=== PATIENT | male | born 1985 | race Caucasian/White ===

== ENCOUNTER 2024-12-06 13:35 | Emergency (ER) | payer BC, OTHER ==
[2024-12-06] MEDS: Gadobenate Dimeglumine 529 MG/ML 20 ML SDV IVPUSH ONE (14:48)
[2024-12-06] MEDS: Sodium Chloride 0.9% 10 ML Syringe FLUSH PRN (14:48)
[2024-12-06 15:46] LABS: BASOPHILS ABSOLUTE AUTO 0.1 K/mm3 (0.0-0.2); BASOPHILS PERCENT AUTO 1.3 % (0.0-1.0); EOSINOPHILS ABSOLUTE AUTO 0.1 K/mm3 (0.0-0.4); EOSINOPHILS PERCENT AUTO 2.6 % (0.0-6.0); HEMATOCRIT 43.4 % (42.0-52.0); HEMOGLOBIN 15.2 gm/dl (14.0-18.0); IMMATURE GRAN ABSOLUTE AUTO 0.01 K/mm3 (0.00-0.05); IMMATURE GRAN PERCENT AUTO 0.2 % (0.0-0.4); LYMPHOCYTES ABSOLUTE AUTO 1.5 K/mm3 (1.0-4.8); LYMPHOCYTES PERCENT AUTO 27.1 % (24.0-44.0); MEAN CORPUSCULAR HEMOGLOBIN 30.7 pg (28.0-32.0); MEAN CORPUSCULAR VOLUME 87.7 fl (83.0-99.0); MEAN PLATELET VOLUME 8.8 fl (9.4-12.4); MONOCYTES ABSOLUTE AUTO 0.7 K/mm3 (0.0-0.8); MONOCYTES PERCENT AUTO 13.2 % (0.0-8.0); NEUTROPHILS ABSOLUTE AUTO 3.1 K/mm3 (1.8-7.7); NEUTROPHILS PERCENT AUTO 55.6 % (41.0-71.0); PLATELET COUNT,PLT 198 K/mm3 (150-400); RED BLOOD CELL COUNT 4.95 M/mm3 (4.52-5.90); WHITE BLOOD CELL COUNT,WBC 5.47 K/mm3 (3.9-11.3)
[2024-12-06 16:08] LABS: INR 1.15; PROTHROMBIN TIME 12.1 SECONDS (9.7-12.0)
[2024-12-06 16:22] LABS: A/G RATIO 0.8 (1-2); ALBUMIN 3.6 g/dl (3.4-5.0); ANION GAP 21.5 (5-15); BILIRUBIN TOTAL 1.5 mg/dL (0.2-1.0); C-REACTIVE PROTEIN 0.49 mg/dL (<0.30); CALCIUM 8.9 mg/dL (8.5-10.1); CREATININE 0.5 mg/dL (0.7-1.3); EST CRCL DRUG DOSING (CG) 226.05 mL/min; ETHANOL BLOOD MEDICAL 0.27 gm% (0.00); POTASSIUM,K 3.5 mEq/L (3.5-5.1); PROTEIN TOTAL,TP 8.1 g/dl (6.4-8.2); TSH 3.389 uIU/mL (0.358-3.74)
[2024-12-06 16:58] LABS: APPEARANCE,URINE CLEAR (Clear); BILIRUBIN,URINE NEGATIVE (Negative); COLOR,URINE YELLOW (Yellow); GLUCOSE,URINE NEGATIVE (Negative); KETONES,URINE 1+ (Negative); LEUKOCYTE ESTERASE,URINE TRACE (Negative); NITRITE,URINE NEGATIVE (Negative); OCCULT BLOOD,URINE TRACE-LYSED (Negative); PROTEIN,URINE NEGATIVE (Negative)
[2024-12-06] MEDS: Thiamine 200 MG/2 ML MDV IVPUSH ONE (17:32)
[2024-12-06] MEDS: Sodium Chloride 0.9% 2,000 ML IV SCH (17:32)
[2024-12-06] MEDS: Multivitamins with Minerals/Folic Acid/Lutein/Zeaxanth Tab PO STA (17:33)
[2024-12-06] MEDS: Folic Acid 1 MG Tab PO ONE (17:33)
[2024-12-06] MEDS: Magnesium Sulf/Wat 4 GM/50 mL 4 GM in Premix Bag 1 BAG IV ONE (17:33)
[2024-12-06 17:47] LABS: BACTERIA,URINE FEW /hpf (FEW); MUCUS,URINE FEW /hpf (FEW); RBC,URINE 0-5 /hpf (0-5); SQUAMOUS EPITHELIAL CELLS,UR 0-5 /hpf (0-5)
[2024-12-06 17:49] LABS: BARBITURATE SCREEN,URINE NEGATIVE (CUTOFF=200); BENZODIAZEPINES SCREEN,URINE NEGATIVE (CUTOFF=150); BUPRENORPHINE SCREEN,URINE NEGATIVE (CUTOFF=10); METHADONE SCREEN, URINE NEGATIVE (CUT0FF=200); METHAMPHETAMINES SCREEN, URINE NEGATIVE (CUTOFF=500); OXYCODONE SCREEN,URINE NEGATIVE (CUT0FF=100); THC SCREEN,URINE 20 NG/ML NEGATIVE (CUTOFF=50)
[2024-12-06 17:50] LABS: AMPHETAMINES SCREEN, URINE NEGATIVE (CUTOFF=500)
[2024-12-06 18:07] LABS: FOLIC ACID 7.1 ng/mL (8.6-58.9)
[2024-12-10 20:41] LABS: VITAMIN B6 38.3 nmol/L (20.0-125.0)
== END 2024-12-06 19:12 | disposition left against medical advice (07) ==
LOC: JD.ED 13:35
DX: F10.120 Alcohol abuse with intoxication, uncomplicated (principal); E83.42 Hypomagnesemia; R79.89 Other specified abnormal findings of blood chemistry; R27.0 Ataxia, unspecified; H54.7 Unspecified visual loss
CPT/HCPCS: 36415; 70553; 71045; 80053; 80306; 80307; 81001; 82550; 82607; 82746; 83605; 83735; 84207; 84443; 84484; 85025; 85610; 85652; 86140; 93005; 96365; 96375; 99285; A9270; A9577; J3411; J3475; J7030

== ENCOUNTER 2024-12-08 16:05 | Inpatient (IN) | payer OTHER ==
[2024-12-08] MEDS ORDERED: Sodium Chloride 0.9% 10 ML Syringe FLUSH PRN (16:30)
[2024-12-08 16:39] LABS: BASOPHILS ABSOLUTE AUTO 0.1 K/mm3 (0.0-0.2); BASOPHILS PERCENT AUTO 1.3 % (0.0-1.0); EOSINOPHILS ABSOLUTE AUTO 0.1 K/mm3 (0.0-0.4); EOSINOPHILS PERCENT AUTO 2.2 % (0.0-6.0); IMMATURE GRAN ABSOLUTE AUTO 0.01 K/mm3 (0.00-0.05); IMMATURE GRAN PERCENT AUTO 0.2 % (0.0-0.4); LYMPHOCYTES ABSOLUTE AUTO 0.9 K/mm3 (1.0-4.8); LYMPHOCYTES PERCENT AUTO 20.4 % (24.0-44.0); MEAN PLATELET VOLUME 9.2 fl (9.4-12.4); MONOCYTES ABSOLUTE AUTO 0.6 K/mm3 (0.0-0.8); MONOCYTES PERCENT AUTO 12.8 % (0.0-8.0); NEUTROPHILS ABSOLUTE AUTO 2.9 K/mm3 (1.8-7.7); NEUTROPHILS PERCENT AUTO 63.1 % (41.0-71.0); NRBC ABSOLUTE 0.00 (0.00-0.02); NRBC PERCENT 0.0 % (0.0-0.2); PLATELET COUNT,PLT 195 K/mm3 (150-400); RED BLOOD CELL COUNT 4.90 M/mm3 (4.52-5.90); WHITE BLOOD CELL COUNT,WBC 4.60 K/mm3 (3.9-11.3)
[2024-12-08] MEDS: Ondansetron 4 MG/2 ML SDV ONE (16:42)
[2024-12-08] MEDS: Ondansetron 4 MG/2 ML SDV IVPUSH ONE (16:42)
[2024-12-08] MEDS: LORazepam 2 MG/ML SDV IVPUSH ONE (16:42)
[2024-12-08] MEDS: LORazepam 2 MG/ML SDV ONE (16:43)
[2024-12-08 16:58] LABS: A/G RATIO 0.9 (1-2); ALANINE AMINOTRANSFERASE,ALT 188.0 U/L (16-63); ASPARTATE AMNIOTRANSFERASE,AST 295.0 U/L (15-37); BILIRUBIN TOTAL 1.5 mg/dL (0.2-1.0); BLOOD UREA NITROGEN,BUN 3.0 mg/dL (7-18); CARBON DIOXIDE,CO2 25.0 mEq/L (21-32); CHLORIDE,CL 96.0 mEq/L (98-107); CREATININE 0.4 mg/dL (0.7-1.3); EST CRCL DRUG DOSING (CG) 274.66 mL/min; ESTIMATED GFR 141.0 mL/min (>60); ETHANOL BLOOD MEDICAL 0.11 gm% (0.00); GLUCOSE RANDOM 93.0 mg/dL (70-99); LACTIC ACID 1.7 mmol/L (0.4-2.0); PHOSPHORUS 3.6 mg/dL (2.6-4.7); POTASSIUM,K 3.5 mEq/L (3.5-5.1); PROTEIN TOTAL,TP 8.2 g/dl (6.4-8.2); SODIUM,NA 137.0 mEq/L (136-145); TROPONIN I HIGH SENSITIVITY 7.0 pg/mL (<=76)
[2024-12-08] MEDS: Magnesium Sulf/Wat 4 GM/50 mL 4 GM in Premix Bag 1 BAG IV ONE (17:53)
[2024-12-08 18:09] LABS: BUPRENORPHINE SCREEN,URINE NEGATIVE (CUTOFF=10); METHADONE SCREEN, URINE NEGATIVE (CUT0FF=200); METHAMPHETAMINES SCREEN, URINE NEGATIVE (CUTOFF=500); OXYCODONE SCREEN,URINE NEGATIVE (CUT0FF=100); THC SCREEN,URINE 20 NG/ML NEGATIVE (CUTOFF=50)
[2024-12-08 18:14] LABS: AMPHETAMINES SCREEN, URINE NEGATIVE (CUTOFF=500)
[2024-12-08] MEDS ORDERED: Ondansetron 4 MG/2 ML SDV IV PRN (18:50)
[2024-12-08] MEDS ORDERED: Ketorolac 30 MG/ML SDV IV PRN (18:50)
[2024-12-08] MEDS ORDERED: Sennosides/Docusate Sodium 50-8.6 MG Tab PO PRN (19:59)
[2024-12-08] MEDS ORDERED: hydrALAZINE 20 MG/ML SDV IVPUSH PRN (20:00)
[2024-12-08] MEDS: Potassium Chloride 20 MEQ Tab.ER PO ONE (20:14)
[2024-12-08] MEDS: LORazepam 2 MG/ML SDV IVPUSH PRN (20:15)
[2024-12-08] MEDS: Labetalol 100 MG/20 ML MDV IVPUSH PRN (20:50)
[2024-12-09 05:34] LABS: BASOPHILS ABSOLUTE AUTO 0.1 K/mm3 (0.0-0.2); BASOPHILS PERCENT AUTO 1.1 % (0.0-1.0); EOSINOPHILS ABSOLUTE AUTO 0.1 K/mm3 (0.0-0.4); EOSINOPHILS PERCENT AUTO 2.5 % (0.0-6.0); IMMATURE GRAN ABSOLUTE AUTO 0.01 K/mm3 (0.00-0.05); IMMATURE GRAN PERCENT AUTO 0.2 % (0.0-0.4); LYMPHOCYTES ABSOLUTE AUTO 0.6 K/mm3 (1.0-4.8); LYMPHOCYTES PERCENT AUTO 14.2 % (24.0-44.0); MEAN PLATELET VOLUME 9.7 fl (9.4-12.4); MONOCYTES ABSOLUTE AUTO 0.7 K/mm3 (0.0-0.8); MONOCYTES PERCENT AUTO 16.0 % (0.0-8.0); NEUTROPHILS ABSOLUTE AUTO 2.9 K/mm3 (1.8-7.7); NEUTROPHILS PERCENT AUTO 66.0 % (41.0-71.0); NRBC ABSOLUTE 0.00 (0.00-0.02); NRBC PERCENT 0.0 % (0.0-0.2); PLATELET COUNT,PLT 147 K/mm3 (150-400); RED BLOOD CELL COUNT 4.75 M/mm3 (4.52-5.90); WHITE BLOOD CELL COUNT,WBC 4.38 K/mm3 (3.9-11.3)
[2024-12-09 05:53] LABS: A/G RATIO 0.8 (1-2); ALANINE AMINOTRANSFERASE,ALT 163.0 U/L (16-63); ASPARTATE AMNIOTRANSFERASE,AST 254.0 U/L (15-37); BILIRUBIN TOTAL 1.8 mg/dL (0.2-1.0); BLOOD UREA NITROGEN,BUN 4.0 mg/dL (7-18); CARBON DIOXIDE,CO2 29.0 mEq/L (21-32); CHLORIDE,CL 100.0 mEq/L (98-107); CREATININE 0.5 mg/dL (0.7-1.3); EST CRCL DRUG DOSING (CG) 219.73 mL/min; ESTIMATED GFR 131.0 mL/min (>60); GLUCOSE RANDOM 102.0 mg/dL (70-99); PHOSPHORUS 3.8 mg/dL (2.6-4.7); POTASSIUM,K 4.1 mEq/L (3.5-5.1); PROTEIN TOTAL,TP 7.7 g/dl (6.4-8.2); SODIUM,NA 138.0 mEq/L (136-145)
[2024-12-09 06:12] LABS: INR 1.08
[2024-12-09 07:09] LABS: VITAMIN D,25-HYDROXY 13.8 ng/ml (30.0-100.0)
[2024-12-09] MEDS ORDERED: Cyanocobalamin (Vitamin B12) 1,000 MCG Tab PO SCH (09:00)
[2024-12-09] MEDS: Cholecalciferol (Vitamin D3) 5,000 UNIT Cap PO SCH (11:40)
[2024-12-09 14:10] LABS: APPEARANCE,URINE CLEAR (Clear); GLUCOSE,URINE NEGATIVE (Negative); OCCULT BLOOD,URINE 3+ (Negative)
[2024-12-09 14:42] LABS: SQUAMOUS EPITHELIAL CELLS,UR 0-5 /hpf (0-5)
[2024-12-10 05:04] LABS: A/G RATIO 0.8 (1-2); ALANINE AMINOTRANSFERASE,ALT 150.0 U/L (16-63); ASPARTATE AMNIOTRANSFERASE,AST 211.0 U/L (15-37); BILIRUBIN TOTAL 1.9 mg/dL (0.2-1.0); BLOOD UREA NITROGEN,BUN 7.0 mg/dL (7-18); CARBON DIOXIDE,CO2 28.0 mEq/L (21-32); CHLORIDE,CL 100.0 mEq/L (98-107); CREATININE 0.3 mg/dL (0.7-1.3); EST CRCL DRUG DOSING (CG) 366.21 mL/min; ESTIMATED GFR 153.0 mL/min (>60); GLUCOSE RANDOM 104.0 mg/dL (70-99); PHOSPHORUS 3.6 mg/dL (2.6-4.7); POTASSIUM,K 3.8 mEq/L (3.5-5.1); PROTEIN TOTAL,TP 7.3 g/dl (6.4-8.2); SODIUM,NA 137.0 mEq/L (136-145)
[2024-12-10] MEDS: Potassium Chloride 20 MEQ Tab.ER PO ONE (10:15)
[2024-12-11 05:01] LABS: A/G RATIO 0.8 (1-2); ALANINE AMINOTRANSFERASE,ALT 186.0 U/L (16-63); ASPARTATE AMNIOTRANSFERASE,AST 277.0 U/L (15-37); BILIRUBIN TOTAL 2.4 mg/dL (0.2-1.0); BLOOD UREA NITROGEN,BUN 7.0 mg/dL (7-18); CARBON DIOXIDE,CO2 27.0 mEq/L (21-32); CHLORIDE,CL 99.0 mEq/L (98-107); CREATININE 0.5 mg/dL (0.7-1.3); EST CRCL DRUG DOSING (CG) 219.73 mL/min; ESTIMATED GFR 131.0 mL/min (>60); GLUCOSE RANDOM 93.0 mg/dL (70-99); PHOSPHORUS 4.1 mg/dL (2.6-4.7); POTASSIUM,K 4.1 mEq/L (3.5-5.1); PROTEIN TOTAL,TP 7.6 g/dl (6.4-8.2); SODIUM,NA 134.0 mEq/L (136-145)
[2024-12-12 07:54] LABS: A/G RATIO 0.8 (1-2); ALANINE AMINOTRANSFERASE,ALT 175.0 U/L (16-63); ASPARTATE AMNIOTRANSFERASE,AST 184.0 U/L (15-37); BILIRUBIN TOTAL 2.6 mg/dL (0.2-1.0); BLOOD UREA NITROGEN,BUN 12.0 mg/dL (7-18); CARBON DIOXIDE,CO2 26.0 mEq/L (21-32); CHLORIDE,CL 96.0 mEq/L (98-107); CREATININE 0.5 mg/dL (0.7-1.3); EST CRCL DRUG DOSING (CG) 219.73 mL/min; ESTIMATED GFR 131.0 mL/min (>60); GLUCOSE RANDOM 92.0 mg/dL (70-99); PHOSPHORUS 4.7 mg/dL (2.6-4.7); POTASSIUM,K 3.8 mEq/L (3.5-5.1); PROTEIN TOTAL,TP 8.0 g/dl (6.4-8.2); SODIUM,NA 134.0 mEq/L (136-145)
[2024-12-12] MEDS: Magnesium Sulf/Wat 4 GM/50 mL 4 GM in Premix Bag 1 BAG IV ONE (08:19)
== END 2024-12-12 13:13 | disposition left against medical advice (07) | DRG 894 ==
LOC: JD.ED 16:05 → JD.ICU 18:50 → UNDOADMIN 18:51 → JD.ICU 18:51
PROVIDERS: ADMIT Student in an Organized Health Care Education/Training Program; ATTEND Family Medicine
PROC: HZ2ZZZZ Detoxification Services for Substance Abuse Treatment (ICD-10-PCS; principal; 2024-12-08)
DX: F10.139 Alcohol abuse with withdrawal, unspecified (principal); E83.42 Hypomagnesemia; F32.A Depression, unspecified; R74.01 Elevation of levels of liver transaminase levels; E80.6 Other disorders of bilirubin metabolism; K76.0 Fatty (change of) liver, not elsewhere classified; E53.8 Deficiency of other specified B group vitamins; E55.9 Vitamin D deficiency, unspecified; M10.9 Gout, unspecified; Z72.0 Tobacco use
CPT/HCPCS: 36415; 71045; 71045-26; 76705; 76705-26; 80053; 80306; 80307; 81001; 82306; 83605; 83690; 83735; 84100; 84425; 84484; 84550; 85025; 85610; 87086; 94760; 94761; 96365; 96367; 96375; 97116-GP; 97161-GP; 97165-GO; 97530-GP; 97535-GO; 99285; 99285-25; A9270-GY; J1650; J1920; J2060; J2405; J3411; J3475; J7030

== ENCOUNTER 2024-12-12 15:40 | Emergency (ER) | payer OTHER ==
[2024-12-12] MEDS ORDERED: LORazepam 2 MG/ML SDV IVPUSH ONE (16:33)
[2024-12-12 16:49] LABS: BASOPHILS ABSOLUTE AUTO 0.1 K/mm3 (0.0-0.2); BASOPHILS PERCENT AUTO 1.0 % (0.0-1.0); EOSINOPHILS ABSOLUTE AUTO 0.1 K/mm3 (0.0-0.4); EOSINOPHILS PERCENT AUTO 1.7 % (0.0-6.0); IMMATURE GRAN ABSOLUTE AUTO 0.01 K/mm3 (0.00-0.05); IMMATURE GRAN PERCENT AUTO 0.2 % (0.0-0.4); LYMPHOCYTES ABSOLUTE AUTO 0.6 K/mm3 (1.0-4.8); LYMPHOCYTES PERCENT AUTO 13.0 % (24.0-44.0); MEAN PLATELET VOLUME 10.0 fl (9.4-12.4); MONOCYTES ABSOLUTE AUTO 0.7 K/mm3 (0.0-0.8); MONOCYTES PERCENT AUTO 14.0 % (0.0-8.0); NEUTROPHILS ABSOLUTE AUTO 3.3 K/mm3 (1.8-7.7); NEUTROPHILS PERCENT AUTO 70.1 % (41.0-71.0); NRBC ABSOLUTE 0.00 (0.00-0.02); NRBC PERCENT 0.0 % (0.0-0.2); PLATELET COUNT,PLT 173 K/mm3 (150-400); RED BLOOD CELL COUNT 4.96 M/mm3 (4.52-5.90); WHITE BLOOD CELL COUNT,WBC 4.77 K/mm3 (3.9-11.3)
[2024-12-12 17:00] LABS: LACTIC ACID 0.8 mmol/L (0.4-2.0)
[2024-12-12 17:06] LABS: A/G RATIO 0.8 (1-2); ALANINE AMINOTRANSFERASE,ALT 193.0 U/L (16-63); ASPARTATE AMNIOTRANSFERASE,AST 213.0 U/L (15-37); BILIRUBIN TOTAL 2.4 mg/dL (0.2-1.0); BLOOD UREA NITROGEN,BUN 14.0 mg/dL (7-18); CARBON DIOXIDE,CO2 27.0 mEq/L (21-32); CHLORIDE,CL 97.0 mEq/L (98-107); CREATININE 0.5 mg/dL (0.7-1.3); EST CRCL DRUG DOSING (CG) 219.73 mL/min; ESTIMATED GFR 131.0 mL/min (>60); GLUCOSE RANDOM 93.0 mg/dL (70-99); PHOSPHORUS 4.5 mg/dL (2.6-4.7); POTASSIUM,K 3.9 mEq/L (3.5-5.1); PROTEIN TOTAL,TP 8.0 g/dl (6.4-8.2); SODIUM,NA 134.0 mEq/L (136-145); TROPONIN I HIGH SENSITIVITY 5.0 pg/mL (<=76)
== END 2024-12-12 18:45 | disposition left against medical advice (07) ==
LOC: JD.ED 15:40
DX: R53.1 Weakness (principal); F10.90 Alcohol use, unspecified, uncomplicated
CPT/HCPCS: 36415; 80053; 83605; 83690; 83735; 84100; 84484; 85025; 99285

== ENCOUNTER 2024-12-13 15:57 | Emergency (ER) | payer OTHER ==
[2024-12-13 16:44] LABS: MEAN PLATELET VOLUME 9.7 fl (9.4-12.4); NRBC ABSOLUTE 0.00 (0.00-0.02); NRBC PERCENT 0.0 % (0.0-0.2); PLATELET COUNT,PLT 206 K/mm3 (150-400); RED BLOOD CELL COUNT 5.22 M/mm3 (4.52-5.90); WHITE BLOOD CELL COUNT,WBC 6.13 K/mm3 (3.9-11.3)
[2024-12-13 17:22] LABS: BAND PERCENT MAN 0 % (0-10); BASOPHILS PERCENT MAN 1 (0.2-1.2); EOSINOPHILS PERCENT MAN 2 % (0.8-7.0); LYMPHOCYTES % ATYPICAL MANUAL 6 %; LYMPHOCYTES PERCENT MAN 12 % (20-40); MONOCYTES PERCENT MAN 18 % (2-10)
[2024-12-13 17:24] LABS: A/G RATIO 0.9 (1-2); ALANINE AMINOTRANSFERASE,ALT 290 U/L (16-63); ASPARTATE AMNIOTRANSFERASE,AST 346 U/L (15-37); BILIRUBIN TOTAL 2.9 mg/dL (0.2-1.0); BLOOD UREA NITROGEN,BUN 19 mg/dL (7-18); CARBON DIOXIDE,CO2 27 mEq/L (21-32); CHLORIDE,CL 97 mEq/L (98-107); CREATININE 0.9 mg/dL (0.7-1.3); ESTIMATED GFR 110 mL/min (>60); GLUCOSE RANDOM 97 mg/dL (70-99); POTASSIUM,K 4.2 mEq/L (3.5-5.1); PROTEIN TOTAL,TP 8.8 g/dl (6.4-8.2); SODIUM,NA 136 mEq/L (136-145); TSH 3.191 uIU/mL (0.358-3.74)
[2024-12-13 17:26] LABS: ETHANOL BLOOD MEDICAL 0.00 gm% (0.00)
[2024-12-13 17:41] LABS: PLATELET COUNT ESTIMATE ADEQUATE
[2024-12-13 17:56] LABS: BUPRENORPHINE SCREEN,URINE NEGATIVE (CUTOFF=10); METHADONE SCREEN, URINE NEGATIVE (CUT0FF=200); METHAMPHETAMINES SCREEN, URINE NEGATIVE (CUTOFF=500); OXYCODONE SCREEN,URINE NEGATIVE (CUT0FF=100); THC SCREEN,URINE 20 NG/ML NEGATIVE (CUTOFF=50)
[2024-12-13 18:02] LABS: AMPHETAMINES SCREEN, URINE NEGATIVE (CUTOFF=500)
== END 2024-12-13 19:32 | disposition home or self-care (01) ==
LOC: MERGE 15:57 → JD.ED 15:57
DX: F10.20 Alcohol dependence, uncomplicated (principal); Y90.9 Presence of alcohol in blood, level not specified
CPT/HCPCS: 36415; 80053; 80143; 80179; 80306; 80307; 84443; 85007; 85027; 93005; 93010; 99284; 99285